=== PATIENT | female | born 1995 | race Caucasian/White ===

== ENCOUNTER 2016-05-03 19:09 | Inpatient (IN) | payer OTHER ==
[~2016-05-03] VITALS: Ht 157.5 cm; Wt 77.0 kg
[~2016-05-03 19:09] MED LIST: MEDROXYPROGESTERONE
[2016-05-03 19:59] VITALS: BP 132/80
[2016-05-03] MEDS ORDERED: PRENATAL VITAM1 EA11 PO (20:01)
[2016-05-03 20:51] LABS: EOSINOPHIL (%) 0.6 % (0-5); EOSINOPHIL COUNT 0.1 K/uL (0-0.3); IMMATURE GRANULOCYTE (%) 0.9 % (0.0-0.7); IMMATURE GRANULOCYTE COUNT 0.1 K/uL; LYMPHOCYTE COUNT 2.6 K/uL (1.0-2.8); MONOCYTE (%) 7.1 % (3-12); NEUTROPHIL (%) 72.6 % (45-76); NEUTROPHIL COUNT 9.9 K/uL (1.8-6.4)
[2016-05-03 20:55] VITALS: BP 138/79
[2016-05-03 21:27] VITALS: BP 115/64
[2016-05-03 21:42] LABS: MEAN PLAT.VOLUME 13.4 uM^3 (9.5-12.4); PLATELET COUNT 122 K/uL (156-360)
[2016-05-03 21:43] LABS: PLAT.SUFFICIENCY DECREASED
[2016-05-03 21:46] LABS: HEMATOCRIT 34.1 % (36.0-46.0); MCH 30.8 PG (29.0-34.0); MCV 90.5 FL (83-99); RBC DIS.WIDTH-CV 13.3 % (11.8-14.6); RBC DIS.WIDTH-SD 43.2 % (39-53); RED BLOOD COUNT 3.77 M/uL (3.80-5.20); WHITE BLOOD COUNT 13.6 K/uL (4.1-10.2)
[2016-05-03 22:10] VITALS: BP 125/83
[2016-05-03 23:05] VITALS: BP 144/83
[2016-05-04] VITALS (33 sets, daily range): BP systolic 117–152; BP diastolic 56–96
[2016-05-05 07:14] VITALS: BP 125/73
[2016-05-05 07:23] LABS: EOSINOPHIL (%) 0.8 % (0-5); EOSINOPHIL COUNT 0.1 K/uL (0-0.3); IMMATURE GRANULOCYTE (%) 0.7 % (0.0-0.7); IMMATURE GRANULOCYTE COUNT 0.1 K/uL; LYMPHOCYTE COUNT 2.3 K/uL (1.0-2.8); MONOCYTE (%) 7.3 % (3-12); MONOCYTE COUNT 0.8 K/uL (0-0.8); NEUTROPHIL (%) 70.3 % (45-76); NEUTROPHIL COUNT 7.9 K/uL (1.8-6.4)
[2016-05-05 08:33] LABS: HEMATOCRIT 29.4 % (36.0-46.0); MCH 30.8 PG (29.0-34.0); MCV 90.5 FL (83-99); MEAN PLAT.VOLUME 13.1 uM^3 (9.5-12.4); PLAT.SUFFICIENCY DECREASED; RBC DIS.WIDTH-CV 13.6 % (11.8-14.6); RBC DIS.WIDTH-SD 44.9 % (39-53); RED BLOOD COUNT 3.25 M/uL (3.80-5.20); WHITE BLOOD COUNT 11.3 K/uL (4.1-10.2)
[2016-05-05 08:35] LABS: PLATELET COUNT 84 K/uL (156-360)
[2016-05-05 15:18] VITALS: BP 132/63
[2016-05-05 22:29] VITALS: BP 139/83
[2016-05-06 07:00] VITALS: BP 134/77
[2016-05-06 08:01] LABS: EOSINOPHIL (%) 1.3 % (0-5); EOSINOPHIL COUNT 0.1 K/uL (0-0.3); IMMATURE GRANULOCYTE (%) 1.1 % (0.0-0.7); IMMATURE GRANULOCYTE COUNT 0.1 K/uL; LYMPHOCYTE COUNT 1.7 K/uL (1.0-2.8); MONOCYTE (%) 7.4 % (3-12); MONOCYTE COUNT 0.7 K/uL (0-0.8); NEUTROPHIL (%) 71.2 % (45-76); NEUTROPHIL COUNT 6.6 K/uL (1.8-6.4)
[2016-05-06 09:12] LABS: HEMATOCRIT 30.5 % (36.0-46.0); MCH 30.3 PG (29.0-34.0); MCHC 32.8 G/DL (30.0-36.0); MCV 92.4 FL (83-99); MEAN PLAT.VOLUME 13.6 uM^3 (9.5-12.4); PLAT.SUFFICIENCY DECREASED; PLATELET COUNT 95 K/uL (156-360); RBC DIS.WIDTH-CV 13.7 % (11.8-14.6); RBC DIS.WIDTH-SD 45.8 % (39-53); USER ID CCL; WHITE BLOOD COUNT 9.2 K/uL (4.1-10.2)
[2016-05-06] MEDS ORDERED: IBUPROFEN800 MG PO (15:35)
[2016-05-06] MEDS ORDERED: CAMILA0.35 MG PO (15:36)
== END 2016-05-06 17:00 | disposition home or self-care (01) | DRG 775 ==
LOC: LDRP-OP → 2WEST 19:10 → LDRP-OP 06-01 12:49
PROVIDERS: Advanced Practice Midwife
DX: O70.0 First degree perineal laceration during delivery (principal); O99.12 Other diseases of the blood and blood-forming organs and certain disorders involving the immune mechanism complicating childbirth; D69.6 Thrombocytopenia, unspecified; Z87.891 Personal history of nicotine dependence; Z91.040 Latex allergy status; Z23 Encounter for immunization; Z3A.40 40 weeks gestation of pregnancy; Z37.0 Single live birth
CPT/HCPCS: 85025; C1755; G0378; J0595; J3010; J7120; Q0169